=== PATIENT | male | born 1995 | race Two or more races ===

== ENCOUNTER 2017-06-14 11:58 | Emergency (ER) | payer MEDICAID ==
[~2017-06-14] VITALS: Ht 185.4 cm; Wt 114.0 kg
[2017-06-14] MEDS ORDERED: IBUPROFEN 600MG TABLET PO ONE (12:30)
[2017-06-14 14:53] VITALS: BP 128/89
== END 2017-06-14 14:54 | disposition home or self-care (01) ==
LOC: ER 11:58
DX: M62.838 Other muscle spasm (principal)
CPT/HCPCS: 73030; 99284